=== PATIENT | male | born 1940 | race Caucasian/White ===

== ENCOUNTER → 2017-10-09 15:42 | Outpatient (CLI) | payer MEDICARE, SELFPAY ==
[2017-10-09 17:13] LABS: Blood Urea Nitrogen 17 mg/dL (9-20); Calcium 10.3 mg/dL (8.4-10.2); Carbon Dioxide 29 mmol/L (22-32); Chloride 101 mmol/L (98-107); Estimated Glomerular Filt Rate > 60.0 mL/min (>60); Glucose 121 mg/dL (80-110); HEMOLYSIS < 15 (0-50); Potassium 5.3 mmol/L (3.4-5.1); Sodium 143 mmol/L (137-145)
[2017-10-09 17:28] LABS: Hemoglobin A1C% w Est Avg Glu 7.2 % (4.0-6.0)
== END ==
PROVIDERS: Family Provider Family Medicine; PCP Family Medicine; Visit Provider Family Medicine
DX: E11.9 Type 2 diabetes mellitus without complications (principal)
CPT/HCPCS: 36415; 80048; 83036

== ENCOUNTER → 2019-02-17 12:49 | Outpatient (CLI) | payer MEDICARE, SELFPAY ==
--- NOTE | 2019-02-17 12:58 | DI.RAD.S_ITS ---
PROCEDURE: XR WRIST RT MIN 3V INDICATIONS: Pain TECHNIQUE: 4 views of the wrist were acquired. COMPARISON: None. FINDINGS: Bones: There is a 2 mm rounded calcification medially adjacent to the proximal base of the right third proximal phalanx. There are moderate degenerative changes of the first carpometacarpal joint. There is severe degenerative changes of the right radiocarpal joint. There are multiple calcified joint bodies measuring up to 0.6 cm in size overlying the right wrist dorsally and laterally at the radiocarpal and ulnocarpal joints. These calcified joint bodies demonstrate partial lucency, as does the distal scaphoid. Soft tissues: There is soft tissue edema of the dorsal right wrist. IMPRESSION: 1. Soft tissue edema of the dorsal right wrist, overlying multiple calcified joint bodies of the radiocarpal and ulnocarpal joints. These calcified joint bodies do not demonstrate well-corticated margins. Differential considerations include localized soft tissue edema, inflammatory arthritides, severe degenerative change, and osteomyelitis. Consider MRI with contrast if there is continued clinical concern. 2. 2 mm calcification medially adjacent to the proximal base of the right third proximal phalanx, which may represent a calcified joint body or sequela of prior fracture. Correlation with point tenderness suggested. Dictated by: Kj Short M.D. on 02/17/2019 at 17:11 Approved by: Kj Short M.D. on 02/17/2019 at 17:18
[2019-02-17 13:43] LABS: Add Manual Diff / Slide Review NO; Basophils Absolute Auto 100 /uL (0-100); Basophils Percent Auto 0.9 % (0-2); Eosinophils Absolute Auto 400 /uL (0-450); Eosinophils Percent Auto 2.3 % (2-4); Hematocrit 40.8 % (41-53); Hemoglobin 13.6 g/dL (13.5-17.5); Lymphocytes Absolute Auto 3200 /uL (1100-4500); Lymphocytes Percent Auto 18.8 % (25-40); Mean Corpuscular HGB Conc 33.2 % (30-36); Mean Corpuscular Hemoglobin 28.6 PG (26-34); Mean Corpuscular Volume 86.2 fL (80-100); Monocytes Absolute Auto 1200 /uL (0-900); Monocytes Percent Auto 7.3 % (3-14); Neutrophils Absolute Auto 11900 /uL (1500-7000); Neutrophils Percent Auto 70.7 % (50-75); Platelet Count 278 X10^3/uL (150-400); Red Blood Cell Count 4.73 X10^6/uL (4.5-5.9); Red Cell Distribution Width 15.7 % (11.6-14.8); White Blood Cell Count 16.8 X10^3/uL (4.5-11.0)
[2019-02-17 13:51] LABS: Hemoglobin A1C% w Est Avg Glu 6.3 % (4.0-6.0)
[2019-02-17 14:00] LABS: Alanine Aminotransferase 16 IU/L (<50); Albumin 4.7 g/dL (3.5-5.0); Albumin Globulin Ratio 1.5 (1.0-2.8); Alkaline Phosphatase 68 U/L (38-126); Aspartate Aminotransferase 24 IU/L (17-59); BUN Creatinine Ratio 21.7 (6-22); Bilirubin Total 0.3 mg/dL (0.2-1.3); Blood Urea Nitrogen 26 mg/dL (9-20); Calcium 10.5 mg/dL (8.4-10.2); Carbon Dioxide 22 mmol/L (22-32); Chloride 105 mmol/L (98-107); Cholesterol 188 mg/dL (140-199); Estimated Glomerular Filt Rate 58.3 mL/min (>60); Globulin 3.2 g/dL (1.7-4.1); Glucose 111 mg/dL (80-110); HDL Cholesterol 49 mg/dL (40-60); HEMOLYSIS < 15 (0-50); LDL Cholesterol Calculated 105 mg/dL (<100); Potassium 5.2 mmol/L (3.4-5.1); Sodium 142 mmol/L (137-145); Total Protein 7.9 g/dL (6.3-8.2); Triglycerides 169 mg/dL (35-150)
[2019-02-17 14:31] LABS: Prostate Specific Antigen Scrn 0.685 ng/mL (0.1-4.0)
== END ==
PROVIDERS: PCP Family Medicine; Visit Provider Family Medicine
DX: M19.90 Unspecified osteoarthritis, unspecified site (principal); E11.9 Type 2 diabetes mellitus without complications; Z12.5 Encounter for screening for malignant neoplasm of prostate
CPT/HCPCS: 36415; 73110; 80053; 80061; 83036; 85025; G0103

== ENCOUNTER → 2019-03-01 11:21 | Outpatient (CLI) | payer MEDICARE, SELFPAY ==
--- NOTE | 2019-03-01 11:53 | DI.CT.S_ITS ---
PROCEDURE: CT UE RT W CON INDICATIONS: Right Wrist pain, abnormal xray of right wrist TECHNIQUE: After the administration of intravenous contrast, 3 mm axial sections acquired of the right wrist region, with coronal and sagittal reformats. COMPARISON: [facility], CR, XR WRIST RT MIN 3V, 02/17/2019, 13:17. FINDINGS: Image quality: Excellent. 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 Soft tissues: A longitudinally oriented soft tissue thickening is present along the dorsum of the wrist, previously described by plain film imaging. This area measures up to 1.7 x 1.0 cm in maximal axial dimension and extends over a longitudinal length dorsal to the carpal bones biopsied 3.0 cm. A small amount of fluid is within, perceptible rim enhancement can be seen but adjacent edema in the surrounding fatty soft tissues is not present. This contains internal small calcifications at its margin. IMPRESSION: Extensive degenerative changes as discussed. The soft tissue thickening with a small amount of internal fluid and calcifications at the dorsum of the wrist may represent a synovial inflammatory process, sequela of prior trauma, and by appearance is considered less likely to represent evidence of infection or please correlate clinically for whether orthopedic surgical consultation is warranted. Dictated by: Dre Dunaway M.D. on 03/01/2019 at 12:10 Approved by: Dre Dunaway M.D. on 03/01/2019 at 12:17
== END ==
PROVIDERS: PCP Family Medicine; Visit Provider Family Medicine
DX: M25.531 Pain in right wrist (principal); R93.7 Abnormal findings on diagnostic imaging of other parts of musculoskeletal system
CPT/HCPCS: 73201; Q9967

== ENCOUNTER → 2020-02-02 15:10 | Outpatient (CLI) | payer MEDICARE, SELFPAY ==
[2020-02-02 15:53] LABS: Hemoglobin A1C% w Est Avg Glu 11.5 % (4.0-6.0)
[2020-02-02 16:21] LABS: BUN Creatinine Ratio 23.1 (6-22); Blood Urea Nitrogen 57 mg/dL (9-20); Calcium 9.6 mg/dL (8.4-10.2); Carbon Dioxide 15 mmol/L (22-32); Chloride 104 mmol/L (98-107); Cholesterol 124 mg/dL (140-199); Estimated Glomerular Filt Rate 25.3 mL/min (>60); HDL Cholesterol 48 mg/dL (40-60); HEMOLYSIS < 15 (0-50); LDL Cholesterol Calculated 51 mg/dL (<100); Sodium 133 mmol/L (137-145); Triglycerides 125 mg/dL (35-150)
[2020-02-02 16:48] LABS: Glucose 520 mg/dL (80-110)
[2020-02-02 16:49] LABS: Microalbumi Creatinin Ratio Ur 100.3 ug/mg CR (<30); Potassium 6.9 mmol/L (3.4-5.1)
== END ==
PROVIDERS: PCP Family Medicine; Referring Provider Family Medicine; Visit Provider Family Medicine
DX: E11.9 Type 2 diabetes mellitus without complications (principal); I10 Essential (primary) hypertension
CPT/HCPCS: 36415; 80048; 80061; 82043; 82570; 83036